=== PATIENT | female | born 1960 | race Caucasian/White ===

== ENCOUNTER 2021-02-02 12:32 | Day surgery (SDC) | payer BC ==
[~2021-02-02] VITALS: Ht 167.6 cm; Wt 118.2 kg
[2021-02-02] MEDS ORDERED: BASAGLAR K100 UNIT/8 (12:57)
[2021-02-02] MEDS ORDERED: LISI20 PO (12:58)
[2021-02-02] MEDS ORDERED: DOXA4 (12:58)
[2021-02-02] MEDS ORDERED: METF500 (12:59)
[2021-02-02] MEDS ORDERED: BASAGLAR K100 UNIT/1 (12:59)
[2021-02-02] MEDS ORDERED: METO100 (12:59)
[2021-02-02] MEDS ORDERED: TRULICITY1.5 MG/0.1 (12:59)
[2021-02-02] MEDS ORDERED: CHLO25 (13:00)
[2021-02-02] MEDS ORDERED: GLUCOTROL10 MG (13:01)
[2021-02-02] MEDS ORDERED: OMEP20ER (13:01)
[2021-02-02] MEDS ORDERED: PRAV20 (13:01)
[2021-02-02] MEDS ORDERED: DOCU100 (13:02)
--- NOTE | 2021-02-02 13:33 | NUR ---
02/02/21 1333 Aura Greenfield CALL LIGHT WITHIN REACH
== END 2021-02-02 15:40 | disposition home or self-care (01) ==
LOC: ORSCSDS 12:32
PROVIDERS: Student in an Organized Health Care Education/Training Program
PROC: 0DBN8ZX Excision of Sigmoid Colon, Via Natural or Artificial Opening Endoscopic, Diagnostic (ICD-10-PCS; principal; 2021-02-02 13:45)
PROC: 0DBH8ZX Excision of Cecum, Via Natural or Artificial Opening Endoscopic, Diagnostic (ICD-10-PCS; principal; 2021-02-02 13:45)
PROC: 0DBL8ZX Excision of Transverse Colon, Via Natural or Artificial Opening Endoscopic, Diagnostic (ICD-10-PCS; principal; 2021-02-02 13:45)
PROC: 0DBK8ZX Excision of Ascending Colon, Via Natural or Artificial Opening Endoscopic, Diagnostic (ICD-10-PCS; principal; 2021-02-02 13:45)
PROC: 0DBM8ZX Excision of Descending Colon, Via Natural or Artificial Opening Endoscopic, Diagnostic (ICD-10-PCS; principal; 2021-02-02 13:45)
DX: R19.4 Change in bowel habit (principal); D64.9 Anemia, unspecified; D12.2 Benign neoplasm of ascending colon; D12.0 Benign neoplasm of cecum; K63.5 Polyp of colon; D12.4 Benign neoplasm of descending colon; K62.1 Rectal polyp; K57.30 Diverticulosis of large intestine without perforation or abscess without bleeding; I10 Essential (primary) hypertension; E11.9 Type 2 diabetes mellitus without complications; E78.5 Hyperlipidemia, unspecified; E66.01 Morbid (severe) obesity due to excess calories; Z68.41 Body mass index [BMI] 40.0-44.9, adult; Z79.4 Long term (current) use of insulin; Z79.899 Other long term (current) drug therapy
CPT/HCPCS: 82947; 88305; J2704; J7120

== ENCOUNTER 2025-04-09 15:28 | Emergency (ER) | payer BC ==
[~2025-04-09] VITALS: Ht 167.6 cm; Wt 113.4 kg
[~2025-04-09 15:28] MED LIST: BASAGLAR K100 UNIT/1; BASAGLAR K100 UNIT/8; CHLO25; DOCU100; DOXA4; GLUCOTROL10 MG; LISI20 PO; METF500; METO100; OMEP20ER; PRAV20; TRULICITY1.5 MG/0.1
[2025-04-09 16:08] LABS: BASOPHILS ABSOLUTE AUTO 0.04 K/mm3 (0.00-0.23); BASOPHILS PERCENT AUTO 0 % (0-2); EOSINOPHILS ABSOLUTE AUTO 0.09 K/mm3 (0.00-0.68); EOSINOPHILS PERCENT AUTO 1 % (0-6); Hematocrit 37.0 % (33.0-51.0); Hemoglobin 12.9 g/dL (11.5-16.0); IMMATURE GRAN ABSOLUTE AUTO 0.13 K/mm3 (0.00-0.10); IMMATURE GRAN PERCENT AUTO 1 % (0-1); LYMPHOCYTES ABSOLUTE AUTO 2.67 K/mm3 (0.84-5.20); LYMPHOCYTES PERCENT AUTO 19 % (21-46); MONOCYTES ABSOLUTE AUTO 0.92 K/mm3 (0.16-1.47); MONOCYTES PERCENT AUTO 7 % (4-13); Mean Corpuscular HGB Conc 34.9 g/dL (31.5-36.5); Mean Corpuscular Volume 87 fL (80-100); NEUTROPHILS ABSOLUTE AUTO 10.34 K/mm3 (1.96-9.15); NEUTROPHILS PERCENT AUTO 73 % (41-73); NRBC ABSOLUTE 0.00 K/mm3 (0.00-0.02); NRBC Auto 0.0 /100 WBC (0.0-0.2); Platelet Count 239 K/mm3 (150-400); RDW Coefficient Variation 13.2 % (11.7-14.2); RDW Standard Deviation 41.3 fL (35.1-46.3)
[2025-04-09 19:18] LABS: Source, Urine Clean Catch
[2025-04-09 19:23] LABS: Bilirubin, Urine Neg (Neg); Color, Urine Yellow (P-Yellow); Glucose Qualitative, Urine Neg (Neg); Ketones, Urine Neg (Neg); Leukocyte Esterase, Urine 2+ (Neg); Protein, Urine 1+ (Neg); Specific Gravity, Urine 1.010 (1.003-1.022); Urobilinogen, Urine NORM (Normal)
[2025-04-09 19:31] LABS: Red Blood Cells, Urine 0-2 /hpf (0-2)
[2025-04-09 20:36] LABS: Alanine Aminotransfer (ALT/SGP 27.0 U/L (12-78); Albumin, Blood 3.7 g/dL (3.4-5.0); Albumin/Globulin Ratio 1.1 (0.8-1.8); Anion Gap 11.0 mmol/L (3-11); Aspartate Aminotrans (AST/SGOT 17.0 U/L (12-37); Bilirubin, Total 0.4 mg/dL (0.1-1.0); Blood Urea Nitrogen 10.0 mg/dL (8-24); CO2, Blood 26.0 mmol/L (21-32); Calcium, Blood 9.3 mg/dL (8.5-10.1); Chloride, Blood 98.0 mmol/L (98-108); Creatinine, Blood 0.79 mg/dL (0.40-1.00); Globulin, Blood 3.5 g/dL (2.2-4.0); Glucose, Blood 215.0 mg/dL (70-99); Potassium, Blood 3.5 mmol/L (3.5-5.5); Sodium, Blood 131.0 mmol/L (136-145); Total Protein, Blood 7.2 g/dL (6.4-8.2)
[2025-04-09] MEDS ORDERED: Trimethoprim/Sulfamethoxazole DS Tab PO ONE (20:50)
[2025-04-09] MEDS ORDERED: PROC25S PR (21:01)
[2025-04-09] MEDS ORDERED: METR500 PO (21:01)
[2025-04-09] MEDS ORDERED: ONDA4ODT MM (21:01)
[2025-04-09] MEDS ORDERED: SULTRIDS PO (21:01)
[2025-04-09 21:05] VITALS: BP 120/79
== END 2025-04-09 21:05 | disposition home or self-care (01) ==
LOC: ER 15:28
PROVIDERS: Emergency Medicine; Student in an Organized Health Care Education/Training Program
DX: R55 Syncope and collapse (principal); S01.111A Laceration without foreign body of right eyelid and periocular area, initial encounter; X58.XXXA Exposure to other specified factors, initial encounter; K57.32 Diverticulitis of large intestine without perforation or abscess without bleeding; N39.0 Urinary tract infection, site not specified; E87.1 Hypo-osmolality and hyponatremia
CPT/HCPCS: 70450; 72125; 74177; 80053; 81001; 83690; 84484; 85025; A9270; Q9967